=== PATIENT | male | born 1950 | race American Indian/Alaskan Native ===

== ENCOUNTER 2019-05-16 11:24 | Day surgery (SDC) | payer MEDICARE ==
[2019-05-16] MEDS ORDERED: ZOFRAN IV PRN (12:11)
--- NOTE | 2019-05-16 12:15 | Anesthesia Day of Surgery ---
Anesthesia Day of Surgery - Day of Surgery Patient Examined: Yes Patient H&P Reviewed: Yes Patient is NPO: Yes
--- NOTE | 2019-05-16 12:21 | Anesthesia Consultation ---
Anesthesia Consult and Med Hx Date of service: 05/16/19 - Pre-Operative Health Status ASA Pre-Surgery Classification: ASA2 Proposed Anesthetic Plan: General - Pulmonary Hx Sleep Apnea: No - Cardiovascular System Hx Hypertension: Yes Hx Cardia Arrhythmia: Yes - Central Nervous System Hx Back Pain: Yes (LOWER LEFT) Hx Psychiatric Problems: Yes - Endocrine Hx Hypothyroidism: Yes - Other Systems Hx Alcohol Use: Yes (OCC BEER) Hx Cancer: No
[2019-05-16] MEDS ORDERED: ZOFRAN ONE (12:30)
[2019-05-16] MEDS ORDERED: ANCEF/STERILE WATER 2 GM/20 ML IV NR (12:31)
[2019-05-16] MEDS ORDERED: LACTATED RINGERS 1,000 ML IV SCH (13:00)
--- NOTE | 2019-05-16 13:55 | Short Stay Summary ---
Short Stay Documentation Date of service: 05/16/19 - History H&P: obtained from office - Allergies and Medications Current Medications: Allergies Iodine and Iodide Containing Produc Adverse Reaction (Severe, Verified 05/14/19 18:42) Anaphylaxis SEAFOOD Adverse Reaction (Severe, Uncoded 05/14/19 18:42) Anaphylaxis Home Medications Medication Instructions Recorded Confirmed Last Taken Type NIFEdipine [Nifedipine ER] 60 mg PO DAILY 04/30/19 05/14/19 05/16/19 09:00 History Synthroid 75 mcg PO DAILY 04/30/19 05/14/19 05/16/19 09:00 History Zolpidem [Ambien] 10 mg PO PRN 04/30/19 05/16/19 05/15/19 21:00 History Active Medications Cefazolin Sodium (Ancef/Sterile Water 2 Gm/20 Ml) 2 gm IV PREOP NR Stop: 05/16/19 23:59 Fentanyl (Sublimaze) 50 mcg IV Q5MIN PRN PRN Reason: Pain , Severe (7-10) Stop: 05/16/19 20:00 Lactated Ringer's (Lactated Ringers) 1,000 mls @ 125 mls/hr IV DIRECT ANGELIQUE Ondansetron HCl (Zofran) 4 mg IV ONCE PRN PRN Reason: Nausea And Vomiting - Brief post op/procedure progress note Date of procedure: 05/16/19 Pre-op diagnosis: bph, prostate ca Post-op diagnosis: same Procedure: cysto, rpg, pus 57cc----bx Anesthesia: GETA, DANIELLE Surgeon: MAMIE THOMAS Condition: stable - Hospital course Hospital course: macrobid on chart - Disposition Condition at discharge: Stable Disposition: DC-01 TO HOME OR SELFCARE Short Stay Discharge Plan Follow up with: OTIS HYDE MD [Primary Care Provider] - 7 Days
[2019-05-16] MEDS ORDERED: WATER FOR IRRIG STERILE IR ONE ×2 (14:16)
[2019-05-16] MEDS: SUBLIMAZE IV PRN ×2 (14:21→14:45)
--- NOTE | 2019-05-16 14:28 | Operative Report ---
PREOPERATIVE DIAGNOSES: Benign prostatic hypertrophy, urinary frequency, prostate cancer. POSTOPERATIVE DIAGNOSES: Benign prostatic hypertrophy, urinary frequency, prostate cancer. PROCEDURE: Cystoscopy, bilateral retrograde pyelograms, prostate ultrasound, and biopsy (57 grams). SURGEON: eTd Jaramillo MD ANESTHESIA: General. ESTIMATED BLOOD LOSS: Minimal. FLUIDS: Crystalloid. COMPLICATIONS: No complications. INDICATIONS: This patient is a 69-year-old gentleman known to my service for several years with a diagnosis of prostate cancer, [place], March 2013. Also has a history of spine disease, has been seen by [facility]. He has seen several urologists in the past (Dr. Sigifredo Gray and Dr. Kobe Mcgarry). He has been on intermittent hormone therapy for his prostate cancer. Due to side effects, he would discontinue it (which would be breast tenderness). His PSA has been in the 5 range; however, it went up to 17 recently as well as worsening voiding symptoms and presents now for intervention. Risks, benefits, and complications were explained. DESCRIPTION OF PROCEDURE: The patient was taken to the operative suite, placed in a supine position. After adequate general anesthesia, placed in a dorsal lithotomy position, prepped and draped in a sterile fashion. Pancystourethroscopy was performed with 22-Sami Storz cystoscope, no urethral abnormalities. Prostate he does have some mild to moderate trilobar obstruction, large median lobe. Bladder, no tumors or stones were noted. He has some mild trabeculation. Bilateral retrograde pyelograms were obtained with an 8 Sami Parmer catheter and 8 mL of contrast. No filling defects or obstruction. He does have some J hooking. Next, using transrectal ultrasound, measurements were taken. No significant lesions. Prostate volume 57 grams. Template biopsy was performed four cores at the base, mid, and apex of the prostate. He tolerated the procedure well and was he extubated and taken to recovery room, be observed overnight. He will go home on Ultram, Macrobid and Flomax. JOB# [id number] [facility]
--- NOTE | 2019-05-16 14:32 | Ultrasound Report ---
ULTRASOUND TRANSRECTAL HISTORY: Enlarged prostate, guidance for prostate biopsy TECHNIQUE: Endorectal ultrasound images. FINDINGS: Transrectal ultrasound guidance was provided for ultrasound-guided prostate biopsy by the u rologist. Prostate volume measures 57.3 cc. Please correlate with the procedural report by urology. IMPRESSION: Successful ultrasound-guided prostate biopsy. Signer Name: Isaac Hutton Jr, MD Signed: 05/16/2019 2:27 PM Workstation Name: [id number]
--- NOTE | 2019-05-16 14:33 | Fluoroscopy Report ---
FLUOROSCOPY RETROGRADE UROGRAPHY HISTORY: Prostate cancer, BPH. FINDINGS: Fluoroscopy was provided by radiology during retrograde urography by the urologist. 9 fluor oscopic images were saved. 32 seconds of fluoroscopy time was utilized. The images demonstrate normal-appearing renal collecting systems bilaterally. No filling defect or ab normal dilatation is identified. IMPRESSION: Normal bilateral retrograde pyelograms. Signer Name: Isaac Hutton Jr, MD Signed: 05/16/2019 2:28 PM Workstation Name: [id number]
[2019-05-16] MEDS ORDERED: ULTRAM PO PRN (14:53)
[2019-05-16] MEDS ORDERED: NORMODYNE IV ONE ×2 (14:59→15:00)
[2019-05-16 15:35] VITALS: BP 146/82
--- NOTE | 2019-05-16 17:35 | Post Anesthesia Evaluation ---
- Post Anesthesia Evaluation Patient Participated: Yes Airway Patent: Yes Stable Respiratory Function: Yes Nausea/Vomiting: No Temp > 96.8F: Yes Pain Manageable: Yes Adequeate Hydration: Yes Anesthesia Complications: No Block Receding Appropriately: Not Applicable Patient on Ventilator: No
== END 2019-05-16 15:50 | disposition home or self-care (01) ==
LOC: OR 11:24
PROVIDERS: ATTEND Urology
DX: N40.0 Benign prostatic hyperplasia without lower urinary tract symptoms (principal); R35.0 Frequency of micturition; I10 Essential (primary) hypertension; F41.9 Anxiety disorder, unspecified; E03.9 Hypothyroidism, unspecified; K21.9 Gastro-esophageal reflux disease without esophagitis; Z79.899 Other long term (current) drug therapy; Z91.041 Radiographic dye allergy status; Z98.890 Other specified postprocedural states; Z72.89 Other problems related to lifestyle; Z91.013 Allergy to seafood; Z85.46 Personal history of malignant neoplasm of prostate
CPT/HCPCS: 52005; 55700; 74420; 76872; 82962; 88305; A4217; C1758; J2405; J7120; Q9967; 88344